=== PATIENT | male | born 1980 | race Caucasian/White ===

== ENCOUNTER 2017-01-31 09:25 | Emergency (ER) ==
[2017-01-31 09:31] VITALS: BP 151/87; TEMP 98.2; BMI 44.4
[2017-01-31] MEDS ORDERED: SODIUM CHLORIDE 1,000 ML IV STA (09:32)
--- NOTE | 2017-01-31 09:47 | ED.PDOC ---
General ED Provider: Dr. FLORENCE JANE Chief Complaint: Non-specific Complaint Stated Complaint: Patient is a 36 year old female who comes to the ER with abnormal potassium called to him from blood drawn yesterday in the [facility]. Time Seen by Physician: 09:43 Mode of Arrival: Walk-In Information Source: Patient Exam Limitations: No limitations Primary Care Provider: KEDAR JONES Nursing and Triage Documentation Reviewed and Agree: Yes Review of Systems - Review Of Systems Constitutional: Reports: No symptoms Eyes: Reports: No symptoms Ears, Nose, Mouth, Throat: Reports: No symptoms Respiratory: Reports: No symptoms Cardiac: Reports: No symptoms GI: Reports: No symptoms : Reports: No symptoms Musculoskeletal: Reports: No symptoms Skin: Reports: No symptoms Neurological: Reports: No symptoms Endocrine: Reports: No symptoms Hematologic/Lymphatic: Reports: No symptoms All Other Systems: Reviewed and Negative Past Medical History - Past Medical History Endocrine: Reports: None Cardiovascular: Reports: None Respiratory: Reports: None Hematological: Reports: None Gastrointestinal: Reports: None Genitourinary: Reports: None Neuro/Psych: Reports: Anxiety, Depression Musculoskeletal: Reports: None Cancer: Reports: None - Surgical History General Surgical History: Reports: Tonsillectomy, Orthopedic (Reconstructive surgery left knee ) - Family History Family History: Reports: None - Social History Smoking Status: Former smoker Hx Substance Use: No Alcohol Screening: None Physical Exam - Physical Exam Appearance: Obese Eyes: REMY, EOMI, Conjunctiva clear ENT: Ears normal, Nose normal, Oropharynx normal Respiratory: Airway patent, Breath sounds clear, Breath sounds equal, Respirations nonlabored Cardiovascular: RRR, Pulses normal, No rub, No murmur GI/: Soft, Nontender, No masses, Bowel sounds normal, No Organomegaly Musculoskeletal: Normal strength, ROM intact, No edema, No calf tenderness Skin: Warm, Dry, Normal color Neurological: Sensation intact, Motor intact, Reflexes intact, Cranial nerves intact, Alert, Oriented Psychiatric: Affect appropriate, Mood appropriate Interpretation - Certified Pesticide Applicator Time of Certified Pesticide Applicator Interpretation: 09:40 Rate: Normal Rhythm: Sinus Ectopy: None - EKG Interpretation Time of EKG #1: 09:46 Rate: Normal Rhythm: Sinus Ectopy: None Finley: NL ST Segment: Normal Interpretation: normal Re-Evaluation - Re-Evaluation Time of Re-Evaluation: 10:33 Status: Unchanged Critical Care Note - Critical Care Note Total Time (mins): 0 Course - Course Hematology/Chemistry: 01/31/17 09:40 01/31/17 09:40 Orders, Labs, Meds: Lab Review 01/31/17 09:40 WBC 7.16 RBC 5.05 Hgb 14.5 Hct 42.6 MCV 84.4 MCH 28.7 MCHC 34.0 RDW Coeff of Arnoldo 12.7 Plt Count 284 Immature Gran % (Auto) 0.3 Neut % (Auto) 72.8 Lymph % (Auto) 19.6 [place] % (Auto) 5.2 Eos % (Auto) 1.3 Baso % (Auto) 0.8 Immature Gran # (Auto) 0.0 Neut # 5.2 Lymph # 1.4 [place] # 0.4 Eos # 0.1 Baso # 0.1 Sodium 139 Potassium 4.2 Chloride 104 Carbon Dioxide 27 Anion Gap 12.2 BUN 13 Creatinine 0.87 Estimated GFR (MDRD) 98.00 BUN/Creatinine Ratio 14.94 Glucose 106 H Calcium 9.2 Magnesium 2.0 Total Bilirubin 0.43 AST 25 ALT 39 Alkaline Phosphatase 73 Total Protein 7.1 Albumin 3.5 Globulin 3.6 Albumin/Globulin Ratio 0.97 Orders Category Date Time Status EKG-(ED ONLY) Stat CARDIO 01/31/17 09:32 Ordered Telemetry [TELEMETRY MONITORING] TELE CARE 01/31/17 09:34 Active ED IV/MEDIPORT/POWERPORT .ONCE EMERGENCY 01/31/17 09:32 Active CBC W/ AUTO DIFF Stat LAB 01/31/17 09:40 Completed COMPREHENSIVE METABOLIC PANEL Stat LAB 01/31/17 09:40 Completed MAGNESIUM Stat LAB 01/31/17 09:40 Completed 0.9 % Sodium Chloride [Saline Flush] MEDS 01/31/17 09:32 Active 1 syr IVF PRN PRN Sodium Chloride 0.9% [Sodium Chloride] 1,000 ml MEDS 01/31/17 09:32 Active IV BOLUS Medications Generic Name Dose Route Start Last Admin Trade Name Freq PRN Reason Stop Dose Admin Sodium Chloride 1 syr 01/31/17 09:32 Saline Flush IVF PRN PRN To flush IV Discontinued Medications Generic Name Dose Route Start Last Admin Trade Name Freq PRN Reason Stop Dose Admin Sodium Chloride 1,000 mls @ 1,000 mls/hr 01/31/17 09:32 Sodium Chloride IV 01/31/17 10:31 BOLUS STA Vital Signs: Temp Pulse Resp BP Pulse Ox 01/31/17 09:26 98.2 F 83 16 151/87 H 95 Departure - Departure Time of Disposition: 10:30 Disposition: HOME SELF-CARE Discharge Problem: Normal appearance Instructions: Normal Exam (ED) Condition: Stable Pt referred to PMD for follow-up: Yes Additional Instructions: Follow up with PCP in 3 days Continue home medication. Allergies/Adverse Reactions: Allergies No Known Allergies Allergy (Unverified 01/31/17 09:31) Home Medications: Ambulatory Orders Alprazolam [Xanax Xr] 3 mg PO DAILY 01/31/17 Atorvastatin Calcium [Lipitor] 10 mg PO BEDTIME 01/31/17 Desvenlafaxine Succinate [Pristiq] 225 mg PO DAILY 01/31/17 Methylphenidate HCl [Methylphenidate ER] 20 mg PO BID 01/31/17 Trazodone HCl 50 mg PO BEDTIME 01/31/17 Disposition Discussed With: Patient, Family
[2017-01-31 09:49] LABS: BASOPHILS # (AUTO) 0.1 K/uL (0-0.2); BASOPHILS % (AUTO) 0.8 % (0.0-3.0); EOSINOPHILS # (AUTO) 0.1 K/ul (0.0-0.7); EOSINOPHILS % (AUTO) 1.3 % (0.0-7.0); HEMATOCRIT 42.6 % (42.0-52.0); HEMOGLOBIN 14.5 g/dl (14.0-18.0); IMMATURE GRANULOCYTE % (AUTO) 0.3 % (0.0-5.0); LYMPHOCYTES # (AUTO) 1.4 K/uL (0.60-3.4); LYMPHOCYTES % (AUTO) 19.6 (10.0-50.0); MEAN CORPUSCULAR HEMOGLOBIN 28.7 pg (27.0-31.0); MEAN CORPUSCULAR VOLUME 84.4 fl (80.0-94.0); MONOCYTES # (AUTO) 0.4 K/uL (0.4-2.0); MONOCYTES % (AUTO) 5.2 (0-10); NEUTROPHILS # (AUTO) 5.2 K/ul (2.0-6.9); NEUTROPHILS % (AUTO) 72.8; PLATELET COUNT 284 10^3/uL (140-440); RED BLOOD COUNT 5.05 10^6/ul (4.70-6.10); WHITE BLOOD COUNT 7.16 K/ul (4.2-10.2)
[2017-01-31 10:09] LABS: ALBUMIN 3.5 g/dL (3.4-5.0); ALBUMIN/GLOBULIN RATIO 0.97; ANION GAP 12.2; BILIRUBIN,TOTAL 0.43 mg/dL (0.00-1.20); BUN/CREATININE RATIO 14.94; CALCIUM 9.2 mg/dL (8.2-10.2); CREATININE 0.87 mg/dL (0.60-1.10); POTASSIUM 4.2 mmol/L (3.5-5.1); TOTAL PROTEIN 7.1 g/dL (6.4-8.2)
== END 2017-01-31 10:49 | disposition home or self-care (01) ==
LOC: ED 09:25
DX: Z00.00 Encounter for general adult medical examination without abnormal findings (principal)
CPT/HCPCS: 36415; 80053; 83735; 85025; 93005; 93010; 99283